=== PATIENT | female | born 2000 | race Caucasian/White ===

== ENCOUNTER 2021-07-15 23:43 | Emergency (ER) | payer MEDICAID ==
[~2021-07-15] VITALS: Ht 170.2 cm; Wt 65.0 kg
[2021-07-15 23:59] VITALS: BP 110/71
[2021-07-16] MEDS ORDERED: bacitracin 15gm ointment TP ONE (00:40)
[2021-07-16] MEDS ORDERED: rabies vaccine (PCEC)/PF 2.5 unit kit IMVAC ONE (00:40)
[2021-07-16] MEDS ORDERED: acetaminophen 325mg tablet PO ONE (00:40)
[2021-07-16] MEDS ORDERED: ibuprofen tablet 400 MG TABLET PO ONE (00:40)
[2021-07-16] MEDS ORDERED: TETanus/Pertussis (Acell)/Diphther VAC/PF (Tdap-Adult) 0.5ml syringe IMVAC ONE (00:40)
[2021-07-16] MEDS ORDERED: LIDOcaine/epinephrine/tetracaine TOPICAL sol 3 ML syringe TOP ONE (00:40)
[2021-07-16] MEDS ORDERED: AMOX-419 PO (00:44)
[2021-07-16] MEDS ORDERED: amox tr/potassium clavulanate 500mg/125mg TAB PO ONE (00:45)
[2021-07-16] MEDS ORDERED: ondansetron 4mg rapidly disintigrating tab PO ONE (00:45)
[2021-07-16] MEDS ORDERED: ibuprofen 200mg tablet PO ONE (00:50)
== END 2021-07-16 03:28 | disposition home or self-care (01) ==
LOC: ER 23:43
DX: S60.512A Abrasion of left hand, initial encounter (principal); Z79.2 Long term (current) use of antibiotics; Z20.3 Contact with and (suspected) exposure to rabies; W54.0XXA Bitten by dog, initial encounter; Y93.89 Activity, other specified; Y92.89 Other specified places as the place of occurrence of the external cause; Y99.8 Other external cause status
CPT/HCPCS: 73140; 90471; 90472; 90675; 90715; 99284

== ENCOUNTER 2021-07-27 18:51 | Emergency (ER) | payer MEDICAID ==
[~2021-07-27] VITALS: Ht 170.2 cm; Wt 60.5 kg
[~2021-07-27 18:51] MED LIST: AMOX-419 PO
[2021-07-27 19:09] VITALS: BP 118/82
== END 2021-07-27 19:14 | disposition home or self-care (01) ==
LOC: ER 18:51
DX: Z02.89 Encounter for other administrative examinations (principal); F41.9 Anxiety disorder, unspecified; V98.8XXA Other specified transport accidents, initial encounter; Y93.89 Activity, other specified; Y92.89 Other specified places as the place of occurrence of the external cause; Y99.8 Other external cause status
CPT/HCPCS: 99283

== ENCOUNTER 2024-07-28 12:36 | Emergency (ER) | payer MEDICAID ==
[~2024-07-28] VITALS: Ht 172.7 cm; Wt 65.9 kg
[2024-07-28] MEDS: LIDOcaine 1% 30ml preserv. free vial IJ STA (12:56)
[2024-07-28] MEDS: LIDOcaine/epinephrine/tetracaine TOPICAL sol 3 ML syringe TOP ONE (12:56)
[2024-07-28 13:40] VITALS: BP 130/80; PULSE 95; RESP 18; TEMP 98; O2SAT 99
== END 2024-07-28 13:41 | disposition home or self-care (01) ==
LOC: ER 12:36
DX: S51.812A Laceration without foreign body of left forearm, initial encounter (principal); W45.8XXA Other foreign body or object entering through skin, initial encounter; Y93.89 Activity, other specified; Y92.89 Other specified places as the place of occurrence of the external cause; Y99.8 Other external cause status
CPT/HCPCS: 12002; 99282; A6258; A6449